=== PATIENT | female | born 1990 | race Caucasian/White ===

== ENCOUNTER 2018-12-30 19:30 | Emergency (ER) | payer OTHER ==
[~2018-12-30] VITALS: Ht 167.6 cm; Wt 73.5 kg
[2018-12-30 19:33] VITALS: Ht 167.6 cm; Wt 73.5 kg
[2018-12-30 21:34] VITALS: BP 113/55
== END 2018-12-30 21:34 | disposition home or self-care (01) ==
LOC: ED 19:30
DX: F07.81 Postconcussional syndrome (principal); Z88.0 Allergy status to penicillin; W20.8XXA Other cause of strike by thrown, projected or falling object, initial encounter; Y93.89 Activity, other specified; Y92.89 Other specified places as the place of occurrence of the external cause; Y99.8 Other external cause status